=== PATIENT | male | born 1970 | race American Indian/Alaskan Native ===

== ENCOUNTER 2019-11-09 05:08 | Day surgery (SDC) | payer OTHER ==
[2019-11-06 13:45] LABS: BASO % 0.3 % (0-2.0); EOS % 1.7 % (0-4.5); HEMATOCRIT 46.5 % (35.4-49); HEMOGLOBIN 15.2 GM/dL (11.7-16.9); MCH 27.9 pg (25.7-33.7); MCHC 32.6 g/dl (32.0-35.9); MEAN CELL VOLUME 85.5 fl (80-96); MEAN PLT VOLUME 9.7 fl (7.5-11.1); MONO % 8.2 % (3.8-10.2); NEUT % 50.8 % (42.8-82.8); PLATELET COUNT 187 K/MM3 (134-434); RBC 5.45 M/mm3 (4.00-5.60); RDW 13.2 % (11.9-15.9); WHITE BLOOD COUNT 8.5 K/mm3 (4.0-10.0)
[2019-11-06 14:03] LABS: ALBUMIN 3.9 g/dl (3.4-5.0); BILIRUBIN,TOTAL 0.5 mg/dL (0.2-1); BLOOD UREA NITROGEN 14.8 mg/dL (7-18); CALCIUM 9.3 mg/dL (8.5-10.1); CREATININE 0.9 mg/dL (0.55-1.3); POTASSIUM 4.6 mmol/L (3.5-5.1); TOT PROT 7.4 g/dl (6.4-8.2)
[2019-11-06 14:04] LABS: INR 0.99 (0.83-1.09); PROTHROMBIN TIME (PATIENT) 11.7 SEC (9.7-13.0)
[2019-11-06 14:59] LABS: EPI CELLS >36 /uL (0-25.1); HYALINE CASTS 8 /uL (0-3.1); URINE APPEARANCE CLEAR; URINE BACTERIA 27 /uL (0-1359); URINE BILIRUBIN NEGATIVE (NEGATIVE); URINE COLOR YELLOW; URINE GLUCOSE (UA) NEGATIVE (NEGATIVE); URINE KETONE NEGATIVE (NEGATIVE); URINE LEUK ESTERASE 1+ (NEGATIVE); URINE NITRITE NEGATIVE (NEGATIVE); URINE PROTEIN 1+ (NEGATIVE); URINE RBC 2187 /uL (0-23.9); URINE UROBILINOGEN 0.2 mg/dL (0.2-1.0); URINE WBC 79 /uL (0-25.8)
[2019-11-08 12:26] VITALS: BMI 34.4
--- NOTE | 2019-11-09 08:02 | HP ---
History & Physical Update - History History: No Change - Physical Physical: No Change - Assessment Assessment: No Change - Plan Plan: No Change
--- NOTE | 2019-11-09 08:04 | OP ---
Operative Note - Note: Operative Date: 11/09/19 Pre-Operative Diagnosis: R ureteral calculus Operation: R ureteroscopic laser lithotripsy and JJ stent change Findings: R ureteral calculus Post-Operative Diagnosis: Same as Pre-op Surgeon: Abhi Mcclellan Anesthesiologist/REVIEW ENGINEER: Susan Cruz Anesthesia: General Specimens Removed: R ureteral calculus, R JJ stent Estimated Blood Loss (mls): 0 Drains & Tubes with Location: 6 fr 24 cm R JJ stent Operative Report Dictated: Yes
[2019-11-09] MEDS ORDERED: EPHEDRINE SULFATE/0.9% NACL/PF 50 MG/10 ML SYRINGE NR ONE (08:10)
[2019-11-09] MEDS ORDERED: PROPOFOL 20 ML ONE ×2 (08:10)
[2019-11-09] MEDS ORDERED: DEXAMETHASONE SOD PHOSPHATE 4 MG/1 ML VIAL ONE (08:10)
[2019-11-09] MEDS ORDERED: MIDAZOLAM HCL 2 MG/2 ML SINGLE DOSE VIAL ONE ×2 (08:11)
[2019-11-09] MEDS ORDERED: SUCCINYLCHOLINE CHLORIDE 200 MG/10 ML SYRINGE ONE (08:11)
[2019-11-09] MEDS ORDERED: ONDANSETRON 4 MG/2 ML VIAL IVPUSH PRN (08:27)
[2019-11-09] MEDS ORDERED: oxyCODONE HCL 5 MG TABLET PO PRN ×2 (08:27)
[2019-11-09] MEDS ORDERED: LACTATED RINGERS SOLUTION 1,000 ML IV SCH (08:30)
[2019-11-09] MEDS ORDERED: ceFAZolin SODIUM 1 GM VIAL IVPB ONE (08:45)
[2019-11-09] MEDS ORDERED: KETOROLAC TROMETHAMINE 30 MG/1 ML VIAL ONE (09:15)
[2019-11-09] MEDS ORDERED: RACEPINEPHRINE IH SOL 2.25% 11.25 MG/0.5 ML VIAL NEB ONE (09:41)
[2019-11-09] MEDS ORDERED: SEVOFLURANE 250 ML BTL ONE (10:21)
[2019-11-09] MEDS ORDERED: oxyCODONE HCL 5 MG TABLET ONE (11:02)
--- NOTE | 2019-11-09 13:52 | OP ---
DATE OF OPERATION: 11/09/2019 PREOPERATIVE DIAGNOSIS: Right ureteral calculus. POSTOPERATIVE DIAGNOSIS: Right ureteral calculus. PROCEDURE: Right ureteroscopic laser lithotripsy and right double-J stent change. SURGEON: Abhi Mcclellan MD MACHINIST SET UP: None. ANESTHESIA: General via laryngeal mask. ANESTHESIOLOGIST: Susan SPECIMENS: Right ureteral calculus, right double-J stent. DRAINS: A 6-Georgian 24-cm right double-J stent. ESTIMATED BLOOD LOSS: None. COMPLICATIONS: None. DESCRIPTION OF PROCEDURE: The patient was brought into the operating room, placed on the operating table in the supine position. After the administration of general anesthesia via laryngeal mask, intravenous antibiotics were administered, sequential compression devices were placed. Patient was placed in the dorsal lithotomy position. The genitals and perineum were prepped and draped in the usual sterile manner. A 22-Georgian cystoscope was inserted into the bladder under direct vision. Anterior and posterior urethra was normal. The bladder was entered and thoroughly inspected. There were no tumors, stones. There was inflammation related to indwelling right double-J stent. The right double-J stent was grasped at its tip, brought to the urethral meatus, cannulated with a 0.038 guidewire which was unable to be passed due encrustation of the double-J stent. Double-J stent was removed, sent to pathology as specimen. Now the 0.038 guidewire was inserted into the right ureteral orifice, advanced to the level of right renal pelvis under direct visual and fluoroscopic guidance. Now the semirigid ureteroscope was inserted alongside the guidewire into the distal ureter where calculus was identified. A 360-micron laser fiber was inserted and laser lithotripsy was done until the stone was fragmented into several small pieces. Basket was inserted. The stone was removed. Now the ureteroscope was removed, the cystoscope backloaded. Dual-lumen catheter was inserted. Retrograde pyelogram was done, demonstrating no extravasation of contrast, no filling defects, moderate hydronephrosis. The guidewire was left coiled in the renal pelvis. The dual-lumen catheter was removed and a 6-Georgian 24-cm right double-J stent was inserted over the guidewire under fluoroscopic and direct visual guidance, leaving 1 coil in the renal pelvis and 1 coil in the bladder. The bladder was emptied, instruments removed. The stent was secured to the penis with a suture and a Tegaderm. He tolerated the procedure well, transferred to the recovery room in stable condition. Brandie [id number]
[2019-11-09 15:02] VITALS: BP 111/61; PULSE 79; TEMP 97.3
--- NOTE | 2019-11-13 17:07 | PATH ---
Surgical Pathology Report Patient Name: SASCHA DUKES Med. Rec. #: [id number] /Age/Gender: 1970 (Age: 49) / M Account: [id number] Location: [facility] SURGICAL Taken: 11/09/2019 Received: 11/09/2019 Reported: 11/13/2019 Physicians: Abhi Mcclellan M.D. Specimen(s) Received A: OLD URETERAL STENT RIGHT B: URETERAL STONE RIGHT Clinical History Calculus right ureter Final Diagnosis A. OLD URETERAL STENT RIGHT, REMOVAL: CONSISTENT WITH SEGMENT OF STENT. B. RIGHT URETERAL STONE, REMOVAL: CONSISTENT WITH URETHRAL CALCULI. SENT FOR CHEMICAL ANALYSIS. Electronically Signed Thuy Warren M.D. Gross Description A. Received fresh labeled "old ureteral stent the right," is a 36 cm in length blue, coiled portion of tubing, consistent with a ureteral stent. No soft tissue is present. No sections are submitted, gross only. B. Received fresh labeled "right ureteral stone," is a 0.3 x 0.3 x 0.2 cm aggregate of granado, irregular to fragmented calculi. The specimen is sent for chemical analysis. DL/11/12/2019 saudi/11/12/2019
[2019-11-27 09:11] LABS: CA OXALATE MONOHYDR. 100%; SIZE 2 x 2; WEIGHT 2
== END 2019-11-09 12:40 | disposition home or self-care (01) ==
LOC: JASU-SURG 05:08
PROVIDERS: ATTEND Urology
PROC: 0TF68ZZ Fragmentation in Right Ureter, Via Natural or Artificial Opening Endoscopic (ICD-10-PCS; principal; 2019-11-09 09:00)
PROC: 0T768DZ Dilation of Right Ureter with Intraluminal Device, Via Natural or Artificial Opening Endoscopic (ICD-10-PCS; 2019-11-09 09:00)
DX: N20.1 Calculus of ureter (principal)
CPT/HCPCS: 36415; 76000-TC-FY; 80053; 81003; 82360; 85025; 85610; 88300-TC; 94760

== ENCOUNTER 2019-12-25 04:16 | Inpatient (IN) | payer OTHER ==
[2019-12-24 09:37] VITALS: BMI 34.4
[2019-12-25] MEDS ORDERED: PROPOFOL 20 ML ONE ×7 (07:43→08:21)
--- NOTE | 2019-12-25 07:54 | HP ---
History & Physical Update - History History: No Change - Physical Physical: No Change - Assessment Assessment: No Change - Plan Plan: No Change
--- NOTE | 2019-12-25 07:56 | OP ---
Operative Note - Note: Operative Date: 12/25/19 Pre-Operative Diagnosis: R renal calculus Operation: ESWL R Findings: R renal calculus Post-Operative Diagnosis: Same as Pre-op Surgeon: Abhi Mcclellan Anesthesiologist/SAP PPM CONSULTANT: Lui Cameron Anesthesia: MAC Estimated Blood Loss (mls): 0 Operative Report Dictated: Yes
--- NOTE | 2019-12-25 08:54 | RAPID ---
Physical Examination Vital Signs: Vital Signs Temperature 97.7 F 12/25/19 06:45 Pulse Rate 74 12/25/19 06:45 Respiratory Rate 20 12/25/19 06:45 Blood Pressure 122/73 12/25/19 06:45 O2 Sat by Pulse Oximetry (%) 97 12/25/19 06:45 Rapid Response - Rapid Response Assessment: Rapid response was called overhead, Team responded immediately. Patient was having seizure like activity. Anesthesiology was on site. Anesthesiology continued patient's rapid Care.
[2019-12-25] MEDS ORDERED: PROPOFOL 1,000,000 MCG/100 ML VIAL ONE (09:06)
[2019-12-25] MEDS: PROPOFOL 1,000,000 MCG/100 ML VIAL IVPB SCH (09:35)
--- NOTE | 2019-12-25 10:15 | PN ---
Progress Note (short form) - Note Progress Note: Called by [facility] to evaluate an unresponsive patient s/p ESWL with no other medical history. Upon arrival patient was unresponsive to verbal command and making whole body tonic clonic movements. Pt breathing, but irregularly. Pulse regular and strong. BP 120/78, HR 75, O2 Sat 100%. Decision made to break seizure with propofol 100mg. Bag mask ventilation easy. Calls placed to surgeon and family. FS 101. BMP, CPK sent. No known underlying seizure disorder, medical or subs tance abuse history. Pt brought to PACU. As propofol wears off, pupils noted to be responsive, and pt demonstates ability to withdraw from noxious stimuli. Pt voluntary moving all 4 extremities, but not responsive to verbal commands. Repeat episode of tonic clonic activity and inadequate breathing ensues. Propofol 100mg IV given again. Decision made to not use benzodiazepines in order to allow other services to examine patient. Hospitalist examines patient then patient seizes for 3rd time. Decision made with hospitalist and input from ICU team to break seizure activity again, intubate patient, place on a propofol infusion and bring to ICU with plan of obtaining CT head. Atraumatic DL x 1 attempt with MAC4 blade, VC 1 view. 7.0 ETT secured 22cm at teeth, placed on vent, brought to ICU. Vital signs remain stable. Will follow.
--- NOTE | 2019-12-25 10:16 | PN ---
Progress Note (short form) - Note Progress Note: ANESTHESIA Event Note Called to patient bedside with report of seizure like activity and unresponsiveness. Patient had been transferred to [facility] recovery room. Monitors had been placed. Initial VS HR 82 BP 125/72 RR 18 O2 sat 97% 2L. Patient was responsive to voice and touch though not purposeful at time of transfer. NA in the room at time of transfer. Report given to Nursing staff at [facility] commamd desk. Rapid response called. Upon arrival another Anesthesia staff member was present assisting with BMV. VS at that time HR 73 O2 sat 100%. Patient was unresponsive exhibiting tonic-clonic like activity. Propofol 100mg administered via PIV. Patient hemodynamically stable throughout, though unresponsive to voice or command during redistribution phase of propofol. Pupils were equally reactive, patient breathing spontaneously. FS 103mg%. Patient breathing spontaneously and HD stable. Transferred to PACU for further monitoring and to await medical consultation. In PACU recurrent tonic-clonic activity noted. 100mg bolus of propofol readministered. Second PIV established, labs sent. Patient responsive to IV access attempts but unresponsive to command. Vital Signs Period Temp Pulse Resp BP Sys/Lovett Pulse Ox Last 24 Hr 97.7 F-97.7 F 65-74 20-20 114-122/58-73 97-99 A/P: 49M no significant PMH s/p R ESWL under propofol TIVA. Intraoperative course uneventful. Seizure like activity manifest as tonic-clonic activity and unresponsiveness observed in [facility] PACU. Unclear etiology. Now in PACU for observation. HD stable throughout. - Neurology consultation pending - Further airway intervention pending mental status reassessment and need for ra diologic exam
[2019-12-25 10:56] LABS: ALBUMIN 3.3 g/dl (3.4-5.0); BILIRUBIN,TOTAL 0.5 mg/dL (0.2-1); BLOOD UREA NITROGEN 14.4 mg/dL (7-18); CALCIUM 8.6 mg/dL (8.5-10.1); CREATININE 0.8 mg/dL (0.55-1.3); POTASSIUM 4.2 mmol/L (3.5-5.1); TOT PROT 6.4 g/dl (6.4-8.2)
[2019-12-25 10:57] LABS: MAGNESIUM 2.6 mg/dL (1.8-2.4)
--- NOTE | 2019-12-25 11:13 | OP ---
DATE OF OPERATION: 12/25/2019 PREOPERATIVE DIAGNOSIS: Right renal calculus. POSTOPERATIVE DIAGNOSIS: Right renal calculus. PROCEDURE: Extracorporeal shockwave lithotripsy, right renal calculus. ANESTHESIA: IV sedation. ANESTHESIOLOGIST: Lui Cameron MD SPECIMENS: None. CULTURES: None. DRAINS: None. ESTIMATED BLOOD LOSS: None. COMPLICATION: None. PROCEDURE: Patient was brought in the operating room, placed on the operating table in the supine position. After administration of intravenous sedation, patient was positioned over the treatment head and under ultrasound guidance 5-mm right mid renal calculus was identified, targeted and delivered 2500 shocks of maximum kilovoltage with excellent fragmentation. Tolerated the procedure well. Was transferred to the recovery room in stable condition. ERIC HENDERSON M.D. [id number]
--- NOTE | 2019-12-25 12:19 | PN ---
Teaching Attending Note Name of Resident: Tony Keating ATTENDING PHYSICIAN STATEMENT I saw and evaluated the patient. I reviewed the resident's note and discussed the case with the resident. I agree with the resident's findings and plan as documented. SUBJECTIVE: Pt seen and examined in the ICU. Transferred from PACU intubated, sedated on pr opofol gtt. Pt self extubated. OBJECTIVE: Vital Signs Period Temp Pulse Resp BP Sys/Lovett Pulse Ox Last 24 Hr 96 F-97.7 F 63-79 12-20 103-150/48-104 97-100 Intake & Output 12/22/19 12/23/19 12/24/19 12/25/19 23:59 23:59 23:59 23:59 Intake Total 400 Balance 400 Weight 93.894 kg Gen: extubated Heart: RRR Lung: decreased breath sounds at the bases Abd: soft, nontender Ext: no edema CBC, BMP 12/25/19 09:25 Active Medications Propofol (Diprivan -) 1,000,000 mcg in 100 mls @ 28.168 mls/hr IVPB TITR DIEGO; Protocol Last Admin: 12/25/19 09:35 Dose: 50 mls Documented by: Levetiracetam (Keppra Injection -) 1,500 mg IVPB ONCE ONE Stop: 12/25/19 11:36 Ondansetron HCl (Zofran Injection) 4 mg IVPUSH ONCE ONE Stop: 12/25/19 11:52 ASSESSMENT AND PLAN: Right Nephrolithiasis s/p R ESWL New Onset Seizure - antiepileptics - CT head - tox screen - panculture - neuro eval - O2 to keep SpO2 >90% - seizure precautions - DVT prophylaxis
[2019-12-25] MEDS ORDERED: ONDANSETRON 4 MG/2 ML VIAL IVPUSH ONE (12:30)
[2019-12-25] MEDS ORDERED: levETIRAcetam 500 MG/5 ML INJECTION VIAL IVPB ONE (12:30)
--- NOTE | 2019-12-25 12:39 | EKG ---
Test Reason : Blood Pressure : / mmHG Vent. Rate : 078 BPM Atrial Rate : 078 BPM P-R Int : 156 ms QRS Dur : 094 ms QT Int : 398 ms P-R-T Axes : 057 065 009 degrees QTc Int : 453 ms NORMAL SINUS RHYTHM SEPTAL INFARCT , AGE UNDETERMINED ABNORMAL ECG NO PREVIOUS ECGS AVAILABLE Confirmed by MD Freedom, Ivan ([id number]) on 12/25/2019 12:39:14 PM Referred By: Confirmed By:Ivan Loja MD
[2019-12-25 13:13] LABS: BASO % 0.1 % (0-2.0); EOS % 1.5 % (0-4.5); HEMATOCRIT 43.5 % (35.4-49); HEMOGLOBIN 14.6 GM/dL (11.7-16.9); LYMPH % 29.4 % (8-40); MCH 28.6 pg (25.7-33.7); MCHC 33.5 g/dl (32.0-35.9); MEAN CELL VOLUME 85.2 fl (80-96); MEAN PLT VOLUME 9.7 fl (7.5-11.1); MONO % 8.4 % (3.8-10.2); NEUT % 60.6 % (42.8-82.8); PLATELET COUNT 158 K/MM3 (134-434); RDW 13.4 % (11.9-15.9); WHITE BLOOD COUNT 8.6 K/mm3 (4.0-10.0)
[2019-12-25 13:35] LABS: MAGNESIUM 2.4 mg/dL (1.8-2.4); PHOSPHOROUS 3.1 mg/dL (2.5-4.9)
--- NOTE | 2019-12-25 13:57 | CONSULT ---
Consultation: REQUESTING PROVIDER: Dr. Mcclellan CONSULT REQUEST: We have been asked to medically evaluate this patient for ICU admission. HISTORY OF PRESENT ILLNESS: Patient came to hospital for extracorpeal shock wave lithotripsy for kidney stones. Patient was in PACU s/p procedure when he started to have seizures. As per nursing note @ 10:30 AM: patient unresponsive, intubated, vent AC 500/50%/12/5 ET 7.0 at the lip 22cm. Propofol infusing at 50mcg/kg/min. Bear hugger in placed. VS 116/58 RR 12 HR 78 normal sinus, rectal temp 96.1. Wrist restraints in place. Patient transferred to ICU from pacu intubated. Patient extubated himself. Patient was awake, non responsive. Breathing on NC. REVIEW OF SYSTEMS: Patient not responded to questions at this time: not able to assess ROS PHYSICAL EXAMINATION Vital Signs - 24 hr 12/25/19 12/25/19 12/25/19 06:45 09:00 09:04 Temperature 97.7 F Pulse Rate 74 77 67 Respiratory 20 12 12 Rate Blood Pressure 122/73 150/104 H 122/73 O2 Sat by Pulse 97 98 100 Oximetry (%) 12/25/19 12/25/19 12/25/19 09:05 09:20 09:35 Temperature Pulse Rate 63 79 76 Respiratory 14 16 18 Rate Blood Pressure 117/56 L 110/69 120/62 O2 Sat by Pulse 100 100 100 Oximetry (%) 12/25/19 12/25/19 12/25/19 09:42 09:45 10:00 Temperature 97.7 F 96 F L Pulse Rate 65 74 Respiratory 20 12 12 Rate Blood Pressure 114/58 L 120/63 O2 Sat by Pulse 99 100 99 Oximetry (%) GENERAL: Awake, and alert, not able to assess orientation Head: Atraumatic ENT: PERRL Heart: RRR, s1, s2 Lungs: CTA BL EXT: no edema BL, muscles rigid Laboratory Results - last 24 hr 12/25/19 12/25/19 12/25/19 08:56 09:25 09:25 WBC RBC Hgb Hct MCV MCH MCHC RDW Plt Count MPV Absolute Neuts (auto) Neutrophils % Lymphocytes % Monocytes % Eosinophils % Basophils % Nucleated RBC % Sodium 139 Potassium 4.2 Chloride 106 Carbon Dioxide 29 Anion Gap 5 L BUN 14.4 Creatinine 0.8 Est GFR (CKD-EPI)AfAm 122.43 Est GFR (CKD-EPI)NonAf 105.63 POC Glucometer 101 Random Glucose 96 Calcium 8.6 Phosphorus Magnesium 2.6 H Total Bilirubin 0.5 AST 34 ALT 49 Alkaline Phosphatase 109 Creatine Kinase 95 Total Protein 6.4 Albumin 3.3 L 12/25/19 12/25/19 12:48 12:48 WBC 8.6 RBC 5.10 Hgb 14.6 Hct 43.5 MCV 85.2 MCH 28.6 MCHC 33.5 RDW 13.4 Plt Count 158 MPV 9.7 Absolute Neuts (auto) 5.2 Neutrophils % 60.6 Lymphocytes % 29.4 D Monocytes % 8.4 Eosinophils % 1.5 Basophils % 0.1 Nucleated RBC % 0 Sodium Potassium Chloride Carbon Dioxide Anion Gap BUN Creatinine Est GFR (CKD-EPI)AfAm Est GFR (CKD-EPI)NonAf POC Glucometer Random Glucose Calcium Phosphorus 3.1 Magnesium 2.4 Total Bilirubin AST ALT Alkaline Phosphatase Creatine Kinase Total Protein Albumin Active Medications Generic Name Dose Route Start Last Admin Trade Name Freq PRN Reason Stop Dose Admin Propofol 1,000,000 mcg in 100 mls @ 28.168 mls/hr 12/25/19 10:30 12/25/19 09:35 Diprivan - IVPB 50 mls TITR DIEGO Administration Protocol 50 MCG/KG/MIN Levetiracetam 500 mg 12/25/19 22:00 Keppra Injection - IVPB BID [facility] ASSESSMENT/PLAN: 49 yo male with not significant pmhx, consulted for seizures s/p ESWL. Unclear etiology. Admitting to ICU for further care and observation. Unexplained Seizures: Keppra given in ICU Neurology consulted Head CT Labs: Cardiac profile, UA, U tox, alcohol Dispo: Admitting to ICU for further care and observation Visit type - Emergency Visit Emergency Visit: Yes ED Registration Date: 12/25/19 Care time: The patient presented to the Emergency Department on the above date and was hospitalized for further evaluation of their emergent condition. - New Patient This patient is new to me today: Yes Date on this admission: 12/25/19 - Critical Care Critical Care patient: Yes Total Critical Care Time (in minutes): 35 Critical Care Statement: The care of this patient involved high complexity decision making to prevent further life threatening deterioration of the patient's condition and/or to evaluate & treat vital organ system(s) failure or risk of failure. ATTENDING PHYSICIAN STATEMENT I saw and evaluated the patient. I reviewed the resident's note and discussed the case with the resident. I agree with the resident's findings and plan as documented. SUBJECTIVE: OBJECTIVE: ASSESSMENT AND PLAN:
--- NOTE | 2019-12-25 16:39 | CON.NEURO ---
Consult - Smoking History Smoking history: Never smoked Home Medications - Allergies Allergies/Adverse Reactions: Allergies Allergy/AdvReac Type Severity Reaction Status Date / Time Penicillins Allergy "rash" Verified 11/09/19 07:42 - Home Medications Home Medications: Ambulatory Orders Tamsulosin HCl [Flomax] 0.4 mg PO HS 11/08/19 Acetaminophen [Tylenol] 325 mg PO PRN PRN 11/09/19 Oxycodone HCl/Acetaminophen [Oxycodone-Acetaminophen 5-325] 1 each PO Q4H PRN 7 Days #42 tablet MDD 6 12/25/19 Physical Exam-Neuro Vital Signs: Vital Signs Temperature 98.0 F 12/25/19 14:00 Pulse Rate 73 12/25/19 14:00 Respiratory Rate 20 12/25/19 14:00 Blood Pressure 105/66 12/25/19 14:00 O2 Sat by Pulse Oximetry (%) 100 12/25/19 14:00 Labs: CBC, BMP 12/25/19 12:48 12/25/19 09:25 Assessment/Plan CC ? New onset seizure HPI 49 year old male , seen in ICU -2 with his daughter at bed side. I was called to see him for ? new onset seizure He came for outpatient lithotripsy procedure and in post op area. He has been having severe nausea and was try to vomiging and his abdomen dayne and it is not clear if he has tonic clonic seizure or if he was having severe naseua and tring to vomit. Patinet was givne profofol and was intubated. He has urgent ct head and it was uemarkable, his electrolyte were normal. Patient has no other medical problem and has not been takign any medication. He was intuabted and subsequently he was self extubated and he bas been stable PMH as above Medication none allergies pcn SH,FH,ROS reviewed in chart NEUROLOGICAL EXAMIANTION Drowsy and able to communciate, oriented x 3 neck is supple vss, afebrile eomi, pupils reactive no face asymmetry moving all ext sensation is normal ct head is normal labs and electrolyte unremarkable Assessment/Plan ? new onset seizure vs heaves, neuro exam is noraml, no evidence of meningitis or stroke. 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 It was discussed with his daughter and patient - seizure precautions Thanking you so much Rodolfo Woody md
[2019-12-25] MEDS: SODIUM CHLORIDE 1,000 ML IV SCH (17:36)
[2019-12-25] MEDS: ACETAMINOPHEN 325 MG TABLET (FP) PO PRN (17:36)
[2019-12-25] MEDS: levETIRAcetam 500 MG/5 ML INJECTION VIAL IVPB SCH (21:42)
[2019-12-25] MEDS ORDERED: ACETAMINOPHEN 1000 MG/100 ML VIAL (NON FORMULARY) IVPB ONE (23:05)
[2019-12-25] MEDS: BENZOCAINE/MENTH/CETYLPYRD CL 1 EACH LOZENGE MM PRN (23:24)
[2019-12-26 01:25] LABS: EPI CELLS 3 /uL (0-25.1); HYALINE CASTS 1 /uL (0-3.1); URINE APPEARANCE CLEAR; URINE BACTERIA 1 /uL (0-1359); URINE BILIRUBIN NEGATIVE (NEGATIVE); URINE COLOR YELLOW; URINE GLUCOSE (UA) NEGATIVE (NEGATIVE); URINE KETONE NEGATIVE (NEGATIVE); URINE LEUK ESTERASE TRACE (NEGATIVE); URINE NITRITE NEGATIVE (NEGATIVE); URINE PROTEIN NEGATIVE (NEGATIVE); URINE RBC 291 /uL (0-23.9); URINE UROBILINOGEN 0.2 mg/dL (0.2-1.0); URINE WBC 4 /uL (0-25.8)
[2019-12-26 02:03] LABS: COCAINE, UR NEGATIVE ng/ml (CUTOFF=300); OPIATES, URI NEGATIVE ng/ml (CUTOFF=300); PHENCYCLIDINE,URINE NEGATIVE ng/ml (CUTOFF=25); URINE BARBITURATES NEGATIVE ng/ml (CUTOFF=200)
[2019-12-26 02:16] LABS: METHADONE, UR NEGATIVE ng/ml (CUTOFF=300); URINE AMPHETAMINES NEGATIVE ng/ml (CUTOFF=500); URINE BENZODIAZEPINES NEGATIVE ng/ml (CUTOFF=200)
[2019-12-26 07:12] LABS: HEMATOCRIT 41.6 % (35.4-49); HEMOGLOBIN 13.8 GM/dL (11.7-16.9); MCH 28.2 pg (25.7-33.7); MCHC 33.1 g/dl (32.0-35.9); MEAN CELL VOLUME 85.1 fl (80-96); MEAN PLT VOLUME 9.5 fl (7.5-11.1); PLATELET COUNT 154 K/MM3 (134-434); RBC 4.88 M/mm3 (4.00-5.60); RDW 13.2 % (11.9-15.9); WHITE BLOOD COUNT 7.2 K/mm3 (4.0-10.0)
[2019-12-26 07:39] LABS: ALBUMIN 3.2 g/dl (3.4-5.0); BLOOD UREA NITROGEN 12.1 mg/dL (7-18); CALCIUM 8.7 mg/dL (8.5-10.1); MAGNESIUM 2.5 mg/dL (1.8-2.4)
[2019-12-26 07:42] LABS: BILIRUBIN,TOTAL 0.7 mg/dL (0.2-1); CREATININE 0.8 mg/dL (0.55-1.3); TOT PROT 6.2 g/dl (6.4-8.2)
[2019-12-26] MEDS: ACETAMINOPHEN 325 MG TABLET (FP) PO PRN ×2 (08:32→16:41)
--- NOTE | 2019-12-26 08:32 | PN ---
Progress Note (short form) - Note Progress Note: 49 year old male , seen in ICU -2 with his daughter at bed side. I was called to see him for ? new onset seizure He came for outpatient lithotripsy procedure and in post op area. He has been having severe nausea and was try to vomiging and his abdomen dayne and it is not clear if he has tonic clonic seizure or if he was having severe naseua and tring to vomit. Patinet was givne profofol and was intubated. He has urgent ct head and it was uemarkable, his electrolyte were normal. Patient has no other medical problem and has not been takign any medication. He was intuabted and subsequently he was self extubated and he bas been stable chart reviewed, event noted, spoke to nursing staff. No seizure. He has been having photophobia and headahce. Mri of brain is normal. NEUROLOGICAL EXAMIANTION Drowsy and able to communciate, oriented x 3 neck is supple vss, afebrile eomi, pupils reactive no face asymmetry moving all ext sensation is normal ct head is normal labs and electrolyte unremarkable mri of brain unremarkable Assessment/Plan 1. ? new onset seizure vs heaves, neuro exam is noraml, no evidence of meningitis or stroke. Ct head is normal - mri of brai unremarkable, eeg is pending - continue keprpa 500 mg po bid for seven days than d/c - seizure precautions 2. Photophobia and headache - Nsaid prn , watch for now - if continue , consider optho consult, neuro exam is non focal and mri is noraml Thanking you so much Rodolfo Woody md
[2019-12-26] MEDS: BENZOCAINE/MENTH/CETYLPYRD CL 1 EACH LOZENGE MM PRN ×2 (09:00→16:44)
[2019-12-26] MEDS: levETIRAcetam 500 MG/5 ML INJECTION VIAL IVPB SCH (10:10)
[2019-12-26] MEDS ORDERED: ACETAMINOPHEN 325 MG TABLET (FP) PO ONE (13:06)
--- NOTE | 2019-12-26 13:09 | PN ---
Teaching Attending Note Name of Resident: Deepali Del Cid ATTENDING PHYSICIAN STATEMENT I saw and evaluated the patient. I reviewed the resident's note and discussed the case with the resident. I agree with the resident's findings and plan as documented. SUBJECTIVE: Pt seen and examined in the ICU. No further seizure activity. c/o headache this AM. Brain imaging and bloodwork unremarkable. OBJECTIVE: Vital Signs Period Temp Pulse Resp BP Sys/Lovett Pulse Ox Last 24 Hr 98.0 F-98.3 F 50-88 9-20 86-118/51-69 95-100 Intake & Output 12/23/19 12/24/19 12/25/19 12/26/19 23:59 23:59 23:59 23:59 Intake Total 900 600 Output Total 400 400 Balance 500 200 Weight 93.894 kg Gen: NAD at rest Heart: RRR Lung: decreased breath sounds at the bases Abd: soft, nontender Ext: no edema CBC, BMP 12/26/19 05:25 12/26/19 05:25 Active Medications Acetaminophen (Tylenol -) 650 mg PO Q6H PRN PRN Reason: Fever Or Pain Last Admin: 12/26/19 08:32 Dose: 650 mg Documented by: Benzocaine/Menthol (Cepacol Lozenge -) 1 each MM PRN PRN PRN Reason: SORE THROAT Last Admin: 12/25/19 23:24 Dose: 1 each Documented by: Propofol (Diprivan -) 1,000,000 mcg in 100 mls @ 28.168 mls/hr IVPB TITR DIEGO; Protocol Last Titration: 12/25/19 12:45 Dose: 0 mcg/kg/min, 0 mls/hr Documented by: Sodium Chloride (Normal Saline -) 1,000 mls @ 75 mls/hr IV ASDIR DIEGO Last Admin: 12/25/19 17:36 Dose: 75 mls/hr Documented by: Levetiracetam (Keppra Injection -) 500 mg IVPB BID DIEGO Last Admin: 12/26/19 10:10 Dose: 500 mg Documented by: ASSESSMENT AND PLAN: Right Nephrolithiasis s/p R ESWL New Onset Seizure - empiric antiepileptics - f/u cultures - DVT prophylaxis - can d/c home
[2019-12-26] MEDS ORDERED: oxyCODONE HCL 5 MG TABLET PO ONE ×2 (16:01→16:21)
--- NOTE | 2019-12-26 17:17 | PN ---
Progress Note (short form) - Note Progress Note: 49 y.o. M PMH R renal calculus now POD#1 s/p right ESWL. Last Vital Signs Temp Pulse Resp BP Pulse Ox 98.2 F 77 18 108/63 97 12/26/19 14:00 12/26/19 16:00 12/26/19 16:00 12/26/19 16:00 12/26/19 16:00 Physical exam: Gen: Alert, oriented x 3. In NAD Neuro: Sensation intact throughout. 4/5 motor strength b/l LEs. HEENT: mild oropharyngeal erythema Pulm: CTABL CV: S1S2 WNL no m/r/g Abd: soft ntnd +BS Extr: Full ROM A/P: 49 y.o. M PMH R renal calculus now POD#1 s/p right ESWL. Patient c/o mild throat discomfort. Will provide throat losenges. Continue with seizure precautions. Neuro is following. Vital signs are stable. Patient stable for transfer to med surg from ICU.
--- NOTE | 2019-12-26 19:02 | PN ---
Progress Note (short form) - Note Progress Note: 49 yo male with not significant pmhx, consulted for seizures s/p ESWL. Unclear etiology. Patient came to hospital for extracorpeal shock wave lithotripsy for kidney stones. Patient was in PACU s/p procedure when he started to have seizures. In PACU, patient became unresponsive, intubated and given propofol. Patient transferred to ICU from pacu intubated. Patient extubated himself. This morning patient was awake, a&o x3. Patient doesn't remember anything from yesterday. Patient only complains of headache. Patient hasn't had any seizures, CT head and MRI brain were normal. Signed off by neurology. Patient was seen by PT: very unsteady & shaky, unable to ambulate further distance, assisted back to bed. Due to patient's current state, patient should be observed for at least 1 more night. Patient is stable for downgrade to med surge.
[2019-12-26] MEDS: SODIUM CHLORIDE 1,000 ML IV SCH (21:15)
[2019-12-26] MEDS: PROPOFOL 1,000,000 MCG/100 ML VIAL IVPB SCH (21:15)
[2019-12-26] MEDS: levETIRAcetam 500 MG TABLET (FP) PO SCH (22:05)
[2019-12-27] MEDS ORDERED: BENZOCAINE/MENTH/CETYLPYRD CL 1 EACH LOZENGE MM PRN (00:03)
[2019-12-27] MEDS ORDERED: ACETAMINOPHEN 325 MG TABLET (FP) PO PRN (00:03)
[2019-12-27] MEDS: SODIUM CHLORIDE 1,000 ML IV SCH (00:53)
[2019-12-27] MEDS: levETIRAcetam 500 MG TABLET (FP) PO SCH (09:35)
--- NOTE | 2019-12-27 11:26 | PN ---
Progress Note (short form) - Note Progress Note: 49 year old male , seen in ICU -2 with his daughter at bed side. I was called to see him for ? new onset seizure He came for outpatient lithotripsy procedure and in post op area. He has been having severe nausea and was try to vomiging and his abdomen dayne and it is not clear if he has tonic clonic seizure or if he was having severe naseua and tring to vomit. Patinet was givne profofol and was intubated. He has urgent ct head and it was uemarkable, his electrolyte were normal. Patient has no other medical problem and has not been takign any medication. He was intuabted and subsequently he was self extubated and he bas been stable no seizure and complaining of photophobia and dizziness. I discuss with patient regarding stopping keppra for now as he is not a candidate for log term candidate NEUROLOGICAL EXAMIANTION Drowsy and able to communciate, oriented x 3 neck is supple vss, afebrile eomi, pupils reactive no face asymmetry moving all ext sensation is normal ct head is normal labs and electrolyte unremarkable mri of brain unremarkable eeg pending Assessment/Plan 1. ? new onset seizure vs heaves, neuro exam is noraml, no evidence of meningitis or stroke. Ct head is normal - mri of brai unremarkable, eeg is pending - stop keppra, discuss with patient as he is having photophobia and dizziness 2. Photophobia and headache - Nsaid prn , watch for now - hold keppra for now Thanking you so much Rodolfo Woody md
[2019-12-27] MEDS ORDERED: KETOROLAC TROMETHAMINE 15 MG/ML VIAL IVPUSH ONE (14:53)
[2019-12-27] MEDS ORDERED: ONDANSETRON 4 MG TABLET PO PRN (15:12)
[2019-12-27] MEDS ORDERED: ONDANSETRON 4 MG/2 ML VIAL IVPUSH PRN (15:24)
--- NOTE | 2019-12-27 15:27 | PN ---
JARROD Mancilla Note Chief Complaint: L flank pain History of Present Illness: 49 yo m 2 days s/p ESWL R renal calculus complic by post op sz, now w severe L flank paon, N, and Jake GARAY cons req. - Objective Vital Signs: Vital Signs Temperature 98.9 F 12/27/19 06:00 Pulse Rate 73 12/27/19 06:00 Respiratory Rate 20 12/27/19 06:00 Blood Pressure 105/63 12/27/19 06:00 O2 Sat by Pulse Oximetry (%) 96 12/27/19 06:00 Constitutional: Yes: Well Nourished, No Distress, Anxious Gastrointestinal: Yes: Soft, Tenderness (LLQ) Genitourinary: Yes: CVA Tenderness - Left Labs/Additional Data: CBC, BMP 12/26/19 05:25 12/26/19 05:25 Problem List - Problems (1) Renal colic on left side Assessment/Plan: obtain non contrast CT A/P to r/o L ureteral calculus or hydronephrosis, cysto and L JJ stent insertion 12/27 if + calculus or hydronephrosis on L. Code(s): N23 - UNSPECIFIED RENAL COLIC
[2019-12-27] MEDS: MORPHINE SULFATE 2 MG/ML VIAL IVPUSH PRN ×2 (15:59→22:09)
--- NOTE | 2019-12-27 17:31 | PN ---
Physical Exam: SUBJECTIVE: Patient seen and examined. Pt downgraded from ICU to med-surg floor. He is s/p lithotripsy on the R. Nurse informed me after pt returned from EEG, pt suddenly having L sided flank pain. Upon my evaluation, pt was groaning, stating that he could "feel the stone moving" in his kidney. Pt also admits to feeling nauseated and vomited 1x. OBJECTIVE: Vital Signs Period Temp Pulse Resp BP Sys/Lovett Pulse Ox Last 24 Hr 97.7 F-98.9 F 61-123 18-20 105-154/60-88 96-99 GENERAL: AAOx3, in acute distress HEENT: NCAT, EOMI, moist mucus membranes. RESPIRATORY: CTA b/l. no wheezes. CARDIAC: Regular rate and rhythm. S1, S2 present, no murmurs. ABDOMEN: soft, nontender, non-distended bowel sounds present. MSK: Moving all extremities. CVAT on the L. EXTREMITIES: warm, well-perfused, no edema. Laboratory Last Values WBC 7.2 K/mm3 (4.0-10.0) 12/26/19 05:25 RBC 4.88 M/mm3 (4.00-5.60) 12/26/19 05:25 Hgb 13.8 GM/dL (11.7-16.9) 12/26/19 05:25 Hct 41.6 % (35.4-49) 12/26/19 05:25 MCV 85.1 fl (80-96) 12/26/19 05:25 MCH 28.2 pg (25.7-33.7) 12/26/19 05:25 MCHC 33.1 g/dl (32.0-35.9) 12/26/19 05:25 RDW 13.2 % (11.9-15.9) 12/26/19 05:25 Plt Count 154 K/MM3 (134-434) 12/26/19 05:25 MPV 9.5 fl (7.5-11.1) 12/26/19 05:25 Absolute Neuts (auto) 5.2 K/mm3 (1.5-8.0) 12/25/19 12:48 Neutrophils % 60.6 % (42.8-82.8) 12/25/19 12:48 Lymphocytes % 29.4 % (8-40) D 12/25/19 12:48 Monocytes % 8.4 % (3.8-10.2) 12/25/19 12:48 Eosinophils % 1.5 % (0-4.5) 12/25/19 12:48 Basophils % 0.1 % (0-2.0) 12/25/19 12:48 Nucleated RBC % 0 % (0-0) 12/25/19 12:48 Sodium 141 mmol/L (136-145) 12/26/19 05:25 Potassium 5.0 mmol/L (3.5-5.1) 12/26/19 05:25 Chloride 106 mmol/L (98-107) 12/26/19 05:25 Carbon Dioxide 33 mmol/L (21-32) H 12/26/19 05:25 Anion Gap 2 MMOL/L (8-16) L 12/26/19 05:25 BUN 12.1 mg/dL (7-18) 12/26/19 05:25 Creatinine 0.8 mg/dL (0.55-1.3) 12/26/19 05:25 Est GFR (CKD-EPI)AfAm 122.43 12/26/19 05:25 Est GFR (CKD-EPI)NonAf 105.63 12/26/19 05:25 POC Glucometer 101 UNITS (80-120) 12/25/19 08:56 Random Glucose 88 mg/dL (74-106) 12/26/19 05:25 Calcium 8.7 mg/dL (8.5-10.1) 12/26/19 05:25 Phosphorus 3.0 mg/dL (2.5-4.9) 12/26/19 05:25 Magnesium 2.5 mg/dL (1.8-2.4) H 12/26/19 05:25 Total Bilirubin 0.7 mg/dL (0.2-1) 12/26/19 05:25 AST 21 U/L (15-37) 12/26/19 05:25 ALT 40 U/L (13-61) 12/26/19 05:25 Alkaline Phosphatase 114 U/L (45-117) 12/26/19 05:25 Creatine Kinase 101 U/L (26-308) 12/25/19 12:48 Troponin I < 0.02 ng/ml (0.00-0.05) 12/25/19 12:48 Total Protein 6.2 g/dl (6.4-8.2) L 12/26/19 05:25 Albumin 3.2 g/dl (3.4-5.0) L 12/26/19 05:25 Prolactin 15.3 ng/ml (4.0-15.2) H 12/25/19 12:48 Urine Color Yellow 12/26/19 00:50 Urine Appearance Clear 12/26/19 00:50 Urine pH 6.0 (5.0-8.0) 12/26/19 00:50 Ur Specific [place] 1.014 (1.010-1.035) 12/26/19 00:50 Urine Protein Negative (NEGATIVE) 12/26/19 00:50 Urine Glucose (UA) Negative (NEGATIVE) 12/26/19 00:50 Urine Ketones Negative (NEGATIVE) 12/26/19 00:50 Urine Blood 3+ (NEGATIVE) H 12/26/19 00:50 Urine Nitrite Negative (NEGATIVE) 12/26/19 00:50 Urine Bilirubin Negative (NEGATIVE) 12/26/19 00:50 Urine Urobilinogen 0.2 mg/dL (0.2-1.0) 12/26/19 00:50 Ur Leukocyte Esterase Trace (NEGATIVE) 12/26/19 00:50 Urine WBC (Auto) 4 /uL (0-25.8) 12/26/19 00:50 Urine RBC (Auto) 291 /uL (0-23.9) 12/26/19 00:50 Urine Casts (Auto) 1 /uL (0-3.1) 12/26/19 00:50 U Epithel Cells (Auto) 3 /uL (0-25.1) 12/26/19 00:50 Urine Bacteria (Auto) 1 /uL (0-1359) 12/26/19 00:50 Opiates Screen Negative ng/ml (HUTOOA=605) 12/26/19 00:50 Methadone Screen Negative ng/ml (KNBYQT=502) 12/26/19 00:50 Barbiturate Screen Negative ng/ml (LYPEYL=882) 12/26/19 00:50 Phencyclidine Screen Negative ng/ml (CUTOFF=25) 12/26/19 00:50 Ur Amphetamines Screen Negative ng/ml (JAFVFG=613) 12/26/19 00:50 MDMA (Ecstasy) Screen Negative ng/ml (GADHVN=286) 12/26/19 00:50 Benzodiazepines Screen Negative ng/ml (FMKZKK=902) 12/26/19 00:50 Cocaine Screen Negative ng/ml (VJLSRQ=154) 12/26/19 00:50 U Marijuana (THC) Screen Negative ng/ml (CUTOFF=50) 12/26/19 00:50 Alcohol, Quantitative < 3 mg/dL (0.0-5.0) 12/25/19 12:48 Active Medications Acetaminophen (Tylenol -) 650 mg PO Q6H PRN PRN Reason: Fever Or Pain Last Admin: 12/27/19 09:41 Dose: 650 mg Documented by: Benzocaine/Menthol (Cepacol Lozenge -) 1 each MM PRN PRN PRN Reason: SORE THROAT Last Admin: 12/27/19 09:42 Dose: 1 each Documented by: Sodium Chloride (Normal Saline -) 1,000 mls @ 75 mls/hr IV ASDIR DIEGO Last Admin: 12/27/19 00:53 Dose: 75 mls/hr Documented by: Morphine Sulfate (Morphine Sulfate) 2 mg IVPUSH Q4H PRN PRN Reason: PAIN LEVEL 6-10 Last Admin: 12/27/19 15:59 Dose: 2 mg Documented by: Ondansetron HCl (Zofran Injection) 4 mg IVPUSH Q4H PRN PRN Reason: NAUSEA AND/OR VOMITING Last Admin: 12/27/19 15:40 Dose: 4 mg Documented by: ASSESSMENT/PLAN: 49 year old M PMH with R renal calculus now POD#2 s/p right ESWL. In the PACU, pt had some seizure like activity, prompting intubation and sedation. Pt self- extubated and was downgraded to medicine floor. Pt subsequently had L sided flank pain, likely due to L renal calculus. L flank pain - post-op day 2 for R ESWL. - Urology consulted. Recommended stat CT abdomen/pelvis w/o contrast. NPO after midnight. Possible L JJ stent placement 12/27 - morphine 2q4H PRN - acetaminophen 650 q6H prn - Zofran 4 q4H PRN Possible new onset seizure - CT head is normal - MRI of brain unremarkable, EEG pending - Neuro consulted. Recommended stop cayla as he is not a candidate. FEN -NS @ 75 - Monitor and replete electrolytes - NPO Ppx DVT: early ambulation Dispo: continue to monitor on floors. Visit type - Emergency Visit Emergency Visit: Yes ED Registration Date: 12/25/19 Care time: The patient presented to the Emergency Department on the above date and was hospitalized for further evaluation of their emergent condition. - New Patient This patient is new to me today: No - Critical Care Critical Care patient: No ATTENDING PHYSICIAN STATEMENT I saw and evaluated the patient. I reviewed the resident's note and discussed the case with the resident. I agree with the resident's findings and plan as documented. SUBJECTIVE: OBJECTIVE: ASSESSMENT AND PLAN:
--- NOTE | 2019-12-27 19:09 | PN ---
Teaching Attending Note Name of Resident: Libra Marie ATTENDING PHYSICIAN STATEMENT I saw and evaluated the patient. I reviewed the resident's note and discussed the case with the resident. I agree with the resident's findings and plan as documented. SUBJECTIVE: Patient is feeling better with NAD, as per nurse his gate is very wobbly, patien t just came back from EEG OBJECTIVE: Vital Signs Temperature 97.8 F 12/27/19 16:30 Pulse Rate 69 12/27/19 16:30 Respiratory Rate 20 12/27/19 16:30 Blood Pressure 154/73 12/27/19 16:30 O2 Sat by Pulse Oximetry (%) 97 12/27/19 14:00 PE; per resident's note No flank pain or discomfort CBCD WBC 7.2 K/mm3 (4.0-10.0) 12/26/19 05:25 RBC 4.88 M/mm3 (4.00-5.60) 12/26/19 05:25 Hgb 13.8 GM/dL (11.7-16.9) 12/26/19 05:25 Hct 41.6 % (35.4-49) 12/26/19 05:25 MCV 85.1 fl (80-96) 12/26/19 05:25 MCHC 33.1 g/dl (32.0-35.9) 12/26/19 05:25 RDW 13.2 % (11.9-15.9) 12/26/19 05:25 Plt Count 154 K/MM3 (134-434) 12/26/19 05:25 MPV 9.5 fl (7.5-11.1) 12/26/19 05:25 CMP Sodium 141 mmol/L (136-145) 12/26/19 05:25 Potassium 5.0 mmol/L (3.5-5.1) 12/26/19 05:25 Chloride 106 mmol/L (98-107) 12/26/19 05:25 Carbon Dioxide 33 mmol/L (21-32) H 12/26/19 05:25 Anion Gap 2 MMOL/L (8-16) L 12/26/19 05:25 BUN 12.1 mg/dL (7-18) 12/26/19 05:25 Creatinine 0.8 mg/dL (0.55-1.3) 12/26/19 05:25 Random Glucose 88 mg/dL (74-106) 12/26/19 05:25 Calcium 8.7 mg/dL (8.5-10.1) 12/26/19 05:25 Total Bilirubin 0.7 mg/dL (0.2-1) 12/26/19 05:25 AST 21 U/L (15-37) 12/26/19 05:25 ALT 40 U/L (13-61) 12/26/19 05:25 Alkaline Phosphatase 114 U/L (45-117) 12/26/19 05:25 Total Protein 6.2 g/dl (6.4-8.2) L 12/26/19 05:25 Albumin 3.2 g/dl (3.4-5.0) L 12/26/19 05:25 CARDIAC ENZYMES Creatine Kinase 101 U/L (26-308) 12/25/19 12:48 Troponin I < 0.02 ng/ml (0.00-0.05) 12/25/19 12:48 Current Medications Generic Name Dose Route Start Last Admin Trade Name Freq PRN Reason Stop Dose Admin Acetaminophen 650 mg 12/27/19 00:03 12/27/19 09:41 Tylenol - PO 650 mg Q6H PRN Administration Fever Or Pain Benzocaine/Menthol 1 each 12/27/19 00:03 12/27/19 09:42 Cepacol Lozenge - MM 1 each PRN PRN Administration SORE THROAT Sodium Chloride 1,000 mls @ 75 mls/hr 12/27/19 00:03 12/27/19 00:53 Normal Saline - IV 75 mls/hr ASDIR DIEGO Administration Morphine Sulfate 2 mg 12/27/19 15:01 12/27/19 15:59 Morphine Sulfate IVPUSH 2 mg Q4H PRN Administration PAIN LEVEL 6-10 Ondansetron HCl 4 mg 12/27/19 15:24 12/27/19 15:40 Zofran Injection IVPUSH 4 mg Q4H PRN Administration NAUSEA AND/OR VOMITING Home Medications Medication Instructions Recorded Tamsulosin HCl [Flomax] 0.4 mg PO HS 11/08/19 Acetaminophen [Tylenol] 325 mg PO PRN PRN 11/09/19 Oxycodone HCl/Acetaminophen 1 each PO Q4H PRN 7 Days #42 12/25/19 [Oxycodone-Acetaminophen 5-325] tablet MDD 6 levETIRAcetam [Keppra -] 500 mg PO BID 7 Days #14 tablet 12/26/19 ASSESSMENT AND PLAN: This patient is a 49yom with PMhx of R renal calculus s/p right ESWL , was in ICU transferred to the medicine team on 12/27/2019. Patient was admitted since had a seizure like activity post procedure. was intubated and self extubated. #POD#2 s/p right ESWL #S/p intubation and self extubation #S/P POSSIBLE new onset seizure :possible due to Propofol ; WITH nl HEAD CT , MRI of brain unremarkable, EEG pending, Neuro DR Woody on the case. EEG is done waiting for the result. As per neuro to stop keppra for now. DVT Px: early ambulation Ct of abdomen pelvis repeat since patient developed severe left flank pain , discussed with Dr casey urologist later the day patient developed severe left flank pain : given ,morphin/toradol and Dr Casey notified going to OR in am for stent placement documented profopol possible causing his seizure activity as allergy
[2019-12-28 07:57] LABS: HEMATOCRIT 41.6 % (35.4-49); HEMOGLOBIN 13.8 GM/dL (11.7-16.9); MCHC 33.2 g/dl (32.0-35.9); MEAN CELL VOLUME 84.4 fl (80-96); MEAN PLT VOLUME 9.6 fl (7.5-11.1); PLATELET COUNT 167 K/MM3 (134-434); RBC 4.93 M/mm3 (4.00-5.60); RDW 13.4 % (11.9-15.9); WHITE BLOOD COUNT 7.8 K/mm3 (4.0-10.0)
--- NOTE | 2019-12-28 07:57 | PN ---
Teaching Attending Note Name of Resident: Libra Marie ATTENDING PHYSICIAN STATEMENT I saw and evaluated the patient. I reviewed the resident's note and discussed the case with the resident. I agree with the resident's findings and plan as documented. SUBJECTIVE: Patient feels better now post IV pain meds. OBJECTIVE: Vital Signs Temperature 98.4 F 12/28/19 06:00 Pulse Rate 64 12/28/19 06:00 Respiratory Rate 20 12/28/19 06:00 Blood Pressure 104/65 12/28/19 06:00 O2 Sat by Pulse Oximetry (%) 96 12/28/19 06:00 PE: per resident's note CBCD WBC 7.2 K/mm3 (4.0-10.0) 12/26/19 05:25 RBC 4.88 M/mm3 (4.00-5.60) 12/26/19 05:25 Hgb 13.8 GM/dL (11.7-16.9) 12/26/19 05:25 Hct 41.6 % (35.4-49) 12/26/19 05:25 MCV 85.1 fl (80-96) 12/26/19 05:25 MCHC 33.1 g/dl (32.0-35.9) 12/26/19 05:25 RDW 13.2 % (11.9-15.9) 12/26/19 05:25 Plt Count 154 K/MM3 (134-434) 12/26/19 05:25 MPV 9.5 fl (7.5-11.1) 12/26/19 05:25 CMP Sodium 141 mmol/L (136-145) 12/26/19 05:25 Potassium 5.0 mmol/L (3.5-5.1) 12/26/19 05:25 Chloride 106 mmol/L (98-107) 12/26/19 05:25 Carbon Dioxide 33 mmol/L (21-32) H 12/26/19 05:25 Anion Gap 2 MMOL/L (8-16) L 12/26/19 05:25 BUN 12.1 mg/dL (7-18) 12/26/19 05:25 Creatinine 0.8 mg/dL (0.55-1.3) 12/26/19 05:25 Random Glucose 88 mg/dL (74-106) 12/26/19 05:25 Calcium 8.7 mg/dL (8.5-10.1) 12/26/19 05:25 Total Bilirubin 0.7 mg/dL (0.2-1) 12/26/19 05:25 AST 21 U/L (15-37) 12/26/19 05:25 ALT 40 U/L (13-61) 12/26/19 05:25 Alkaline Phosphatase 114 U/L (45-117) 12/26/19 05:25 Total Protein 6.2 g/dl (6.4-8.2) L 12/26/19 05:25 Albumin 3.2 g/dl (3.4-5.0) L 12/26/19 05:25 CARDIAC ENZYMES Creatine Kinase 101 U/L (26-308) 12/25/19 12:48 Troponin I < 0.02 ng/ml (0.00-0.05) 12/25/19 12:48 Current Medications Generic Name Dose Route Start Last Admin Trade Name Freq PRN Reason Stop Dose Admin Acetaminophen 650 mg 12/27/19 00:03 12/27/19 09:41 Tylenol - PO 650 mg Q6H PRN Administration Fever Or Pain Benzocaine/Menthol 1 each 12/27/19 00:03 12/27/19 09:42 Cepacol Lozenge - MM 1 each PRN PRN Administration SORE THROAT Sodium Chloride 1,000 mls @ 75 mls/hr 12/27/19 00:03 12/27/19 00:53 Normal Saline - IV 75 mls/hr ASDIR DIEGO Administration Morphine Sulfate 2 mg 12/27/19 15:01 12/27/19 22:09 Morphine Sulfate IVPUSH 2 mg Q4H PRN Administration PAIN LEVEL 6-10 Ondansetron HCl 4 mg 12/27/19 15:24 12/27/19 15:40 Zofran Injection IVPUSH 4 mg Q4H PRN Administration NAUSEA AND/OR VOMITING Home Medications Medication Instructions Recorded RX: Tamsulosin HCl [Flomax] 0.4 mg PO HS 11/08/19 RX: Acetaminophen [Tylenol] 325 mg PO PRN PRN 11/09/19 Oxycodone HCl/Acetaminophen 1 each PO Q4H PRN 7 Days #42 12/25/19 [Oxycodone-Acetaminophen 5-325] tablet MDD 6 levETIRAcetam [Keppra -] 500 mg PO BID 7 Days #14 tablet 12/26/19 CT of brain without contrast:no evidence of focal intracranial lesion or hemorrhage MRI of the brain: negative CT of the abdomen/pelvis: BL nephrolithiasis with no evidence of obstructive uropathy, no acute pathology within the abdomen. 4mm calcification within the lower pole of the right kidney consistent with a nonobstructing stone within the lower pole of the kidney. ASSESSMENT AND PLAN: This patient is a 49yom with PMhx of R renal calculus s/p right ESWL , was in ICU transferred to the medicine team on 12/27/2019. Patient was admitted since had a seizure like activity post procedure. was intubated and self extubated. #POD#3 s/p right ESWL #S/p intubation and self extubation #S/P POSSIBLE new onset seizure :possible due to Propofol ; WITH nl HEAD CT , MRI of brain unremarkable, EEG pending, Neuro DR Woody on the case. EEG is done waiting for the result. As per neuro to stop keppra for now. DVT Px: early ambulation Ct of abdomen pelvis as above as per Dr Davis no need for a stent at this time, will monitor documented profopol possible causing his seizure activity as allergy 12/28/2019
[2019-12-28 08:10] LABS: BLOOD UREA NITROGEN 14.4 mg/dL (7-18); CALCIUM 8.6 mg/dL (8.5-10.1); CREATININE 0.8 mg/dL (0.55-1.3); POTASSIUM 4.9 mmol/L (3.5-5.1)
[2019-12-28] MEDS: MORPHINE SULFATE 2 MG/ML VIAL IVPUSH PRN (09:22)
[2019-12-28] MEDS: SODIUM CHLORIDE 1,000 ML IV SCH (09:25)
--- NOTE | 2019-12-28 09:38 | PN ---
Progress Note (short form) - Note Progress Note: 49 year old male , seen in ICU -2 on admission with his daughter at bed side. I was called to see him for ? new onset seizure He came for outpatient lithotripsy procedure and in post op area. He has been having severe nausea and was try to vomiging and his abdomen dayne and it is not clear if he has tonic clonic seizure or if he was having severe naseua and tring to vomit. Patinet was givne profofol and was intubated. He has urgent ct head and it was uemarkable, his electrolyte were normal. Patient has no other medical problem and has not been takign any medication. He was intuabted and subsequently he was self extubated and he bas been stable - feeling better after stopping keppra. spoke to nursing staff, chart and event reviewed. he has pain in flank and going for lithotripsy again. his photophobia and dizziness is better NEUROLOGICAL EXAMIANTION Drowsy and able to communciate, oriented x 3 neck is supple vss, afebrile eomi, pupils reactive no face asymmetry moving all ext sensation is normal ct head is normal labs and electrolyte unremarkable mri of brain unremarkable eeg wnl Assessment/Plan 1. ? new onset seizure vs heaves, neuro exam is noraml, no evidence of meningitis or stroke. Ct head is normal - mri of brai unremarkable, eeg is normal - after stopping keppra he is feeling better, his photophobia and dizziness has improved. this was induced episode do not need [facility] AED. It was discussed with patient and still advised seizure precautions for six month. 2. Photophobia and headache - much better Thanking you so much Rodolfo Woody md
[2019-12-28] MEDS ORDERED: MORPHINE SULFATE 2 MG/ML VIAL IVPUSH ONE (10:27)
--- NOTE | 2019-12-28 12:56 | PN ---
Physical Exam: SUBJECTIVE: Patient seen and examined. No acute events overnight. Pt was more comfortable today with pain medication. Pt denied hematuria, fevers, chills, shortness of breath, chest pain. OBJECTIVE: Vital Signs Period Temp Pulse Resp BP Sys/Lovett Pulse Ox Last 24 Hr 97.8 F-98.4 F 64-82 20-20 104-154/57-88 96-97 GENERAL: AAOx3, in acute distress HEENT: NCAT, EOMI, moist mucus membranes. RESPIRATORY: CTA b/l. no wheezes. CARDIAC: Regular rate and rhythm. S1, S2 present, no murmurs. ABDOMEN: soft, nontender, non-distended bowel sounds present. MSK: Moving all extremities. CVAT on the L. EXTREMITIES: warm, well-perfused, no edema. Laboratory Last Values WBC 7.8 K/mm3 (4.0-10.0) 12/28/19 06:55 RBC 4.93 M/mm3 (4.00-5.60) 12/28/19 06:55 Hgb 13.8 GM/dL (11.7-16.9) 12/28/19 06:55 Hct 41.6 % (35.4-49) 12/28/19 06:55 MCV 84.4 fl (80-96) 12/28/19 06:55 MCH 28.0 pg (25.7-33.7) 12/28/19 06:55 MCHC 33.2 g/dl (32.0-35.9) 12/28/19 06:55 RDW 13.4 % (11.9-15.9) 12/28/19 06:55 Plt Count 167 K/MM3 (134-434) 12/28/19 06:55 MPV 9.6 fl (7.5-11.1) 12/28/19 06:55 Absolute Neuts (auto) 5.2 K/mm3 (1.5-8.0) 12/25/19 12:48 Neutrophils % 60.6 % (42.8-82.8) 12/25/19 12:48 Lymphocytes % 29.4 % (8-40) D 12/25/19 12:48 Monocytes % 8.4 % (3.8-10.2) 12/25/19 12:48 Eosinophils % 1.5 % (0-4.5) 12/25/19 12:48 Basophils % 0.1 % (0-2.0) 12/25/19 12:48 Nucleated RBC % 0 % (0-0) 12/25/19 12:48 Sodium 142 mmol/L (136-145) 12/28/19 06:55 Potassium 4.9 mmol/L (3.5-5.1) 12/28/19 06:55 Chloride 108 mmol/L (98-107) H 12/28/19 06:55 Carbon Dioxide 30 mmol/L (21-32) 12/28/19 06:55 Anion Gap 4 MMOL/L (8-16) L 12/28/19 06:55 BUN 14.4 mg/dL (7-18) 12/28/19 06:55 Creatinine 0.8 mg/dL (0.55-1.3) 12/28/19 06:55 Est GFR (CKD-EPI)AfAm 122.43 12/28/19 06:55 Est GFR (CKD-EPI)NonAf 105.63 12/28/19 06:55 POC Glucometer 101 UNITS (80-120) 12/25/19 08:56 Random Glucose 93 mg/dL (74-106) 12/28/19 06:55 Calcium 8.6 mg/dL (8.5-10.1) 12/28/19 06:55 Phosphorus 3.0 mg/dL (2.5-4.9) 12/26/19 05:25 Magnesium 2.5 mg/dL (1.8-2.4) H 12/26/19 05:25 Total Bilirubin 0.7 mg/dL (0.2-1) 12/26/19 05:25 AST 21 U/L (15-37) 12/26/19 05:25 ALT 40 U/L (13-61) 12/26/19 05:25 Alkaline Phosphatase 114 U/L (45-117) 12/26/19 05:25 Creatine Kinase 101 U/L (26-308) 12/25/19 12:48 Troponin I < 0.02 ng/ml (0.00-0.05) 12/25/19 12:48 Total Protein 6.2 g/dl (6.4-8.2) L 12/26/19 05:25 Albumin 3.2 g/dl (3.4-5.0) L 12/26/19 05:25 Prolactin 15.3 ng/ml (4.0-15.2) H 12/25/19 12:48 Urine Color Yellow 12/26/19 00:50 Urine Appearance Clear 12/26/19 00:50 Urine pH 6.0 (5.0-8.0) 12/26/19 00:50 Ur Specific [place] 1.014 (1.010-1.035) 12/26/19 00:50 Urine Protein Negative (NEGATIVE) 12/26/19 00:50 Urine Glucose (UA) Negative (NEGATIVE) 12/26/19 00:50 Urine Ketones Negative (NEGATIVE) 12/26/19 00:50 Urine Blood 3+ (NEGATIVE) H 12/26/19 00:50 Urine Nitrite Negative (NEGATIVE) 12/26/19 00:50 Urine Bilirubin Negative (NEGATIVE) 12/26/19 00:50 Urine Urobilinogen 0.2 mg/dL (0.2-1.0) 12/26/19 00:50 Ur Leukocyte Esterase Trace (NEGATIVE) 12/26/19 00:50 Urine WBC (Auto) 4 /uL (0-25.8) 12/26/19 00:50 Urine RBC (Auto) 291 /uL (0-23.9) 12/26/19 00:50 Urine Casts (Auto) 1 /uL (0-3.1) 12/26/19 00:50 U Epithel Cells (Auto) 3 /uL (0-25.1) 12/26/19 00:50 Urine Bacteria (Auto) 1 /uL (0-1359) 12/26/19 00:50 Opiates Screen Negative ng/ml (JZIXOH=679) 12/26/19 00:50 Methadone Screen Negative ng/ml (QNGBKT=731) 12/26/19 00:50 Barbiturate Screen Negative ng/ml (VIOWXO=582) 12/26/19 00:50 Phencyclidine Screen Negative ng/ml (CUTOFF=25) 12/26/19 00:50 Ur Amphetamines Screen Negative ng/ml (MZNOTG=706) 12/26/19 00:50 MDMA (Ecstasy) Screen Negative ng/ml (NWXZQN=080) 12/26/19 00:50 Benzodiazepines Screen Negative ng/ml (ZUVXMU=653) 12/26/19 00:50 Cocaine Screen Negative ng/ml (NQYBKP=753) 12/26/19 00:50 U Marijuana (THC) Screen Negative ng/ml (CUTOFF=50) 12/26/19 00:50 Alcohol, Quantitative < 3 mg/dL (0.0-5.0) 12/25/19 12:48 Active Medications Acetaminophen (Tylenol -) 650 mg PO Q6H PRN PRN Reason: Fever Or Pain Last Admin: 12/27/19 09:41 Dose: 650 mg Documented by: Benzocaine/Menthol (Cepacol Lozenge -) 1 each MM PRN PRN PRN Reason: SORE THROAT Last Admin: 12/27/19 09:42 Dose: 1 each Documented by: Sodium Chloride (Normal Saline -) 1,000 mls @ 75 mls/hr IV ASDIR DIEGO Last Admin: 12/28/19 09:25 Dose: 75 mls/hr Documented by: Morphine Sulfate (Morphine Sulfate) 2 mg IVPUSH Q4H PRN PRN Reason: PAIN LEVEL 6-10 Last Admin: 12/28/19 09:22 Dose: 2 mg Documented by: Ondansetron HCl (Zofran Injection) 4 mg IVPUSH Q4H PRN PRN Reason: NAUSEA AND/OR VOMITING Last Admin: 12/27/19 15:40 Dose: 4 mg Documented by: CT abd/pelvis 1. Bilateral nephrolithiasis with no evidence of obstructive uropathy. 2. No acute pathology within the abdomen or pelvis. ASSESSMENT/PLAN: 49 year old M PMH with R renal calculus now POD#3 s/p right ESWL. In the PACU, pt had some seizure like activity, prompting intubation and sedation. Pt self- extubated and was downgraded to medicine floor. Pt subsequently had L sided flank pain. Pain was controlled with medication. Dr. Mcclellan informed of pt's current condition. L flank pain - post-op day 3 for R ESWL. - CT abdomen/pelvis above. - Urology consulted. No indication for cystoscopy or L JJ stent insertion. Pt will f/u as outpatient to schedule ESWL L then R. - morphine 2q4H PRN. Had an episode of increased pain today. Put 1 time order for morphine 1mg. - acetaminophen 650 q6H prn - Zofran 4 q4H PRN ?New onset seizure - CT head is normal - MRI of brain unremarkable, EEG normal - Neuro consulted. Stopped keppra, dizziness and photophobia improved. This is likely a induced episode and pt does not require custodial antiepileptic drugs. Recommended seizure precautions for six months. FEN -NS @ 75 - Monitor and replete electrolytes - NPO Ppx DVT: early ambulation Dispo: continue to monitor on floors. Visit type - Emergency Visit Emergency Visit: No - New Patient This patient is new to me today: No - Critical Care Critical Care patient: No ATTENDING PHYSICIAN STATEMENT I saw and evaluated the patient. I reviewed the resident's note and discussed the case with the resident. I agree with the resident's findings and plan as documented. SUBJECTIVE: OBJECTIVE: ASSESSMENT AND PLAN:
--- NOTE | 2019-12-28 14:39 | PN ---
JARROD Mancilla Note Chief Complaint: pt feels well History of Present Illness: less L flank pain - Objective Vital Signs: Vital Signs Temperature 98.4 F 12/28/19 06:00 Pulse Rate 64 12/28/19 06:00 Respiratory Rate 20 12/28/19 06:00 Blood Pressure 104/65 12/28/19 06:00 O2 Sat by Pulse Oximetry (%) 96 12/28/19 06:00 Gastrointestinal: Yes: WNL Genitourinary: Yes: WNL Kidneys: Yes: WNL. No: Flank Pain Left, FLank Pain Right Labs/Additional Data: CBC, BMP 12/28/19 06:55 12/28/19 06:55 Imaging - Results Cat Scan: Report Reviewed Problem List - Problems (1) Renal colic on left side Assessment/Plan: CT A/P reviewed, + bilat non-obstructive renal calculi, 3 and 4 mm, no ureteral calculi or hydronephrosis. will cancel cysto and L JJ stent insertion. F/U after disch to book ESWL L then R Code(s): N23 - UNSPECIFIED RENAL COLIC
[2019-12-28] MEDS: KETOROLAC TROMETHAMINE 15 MG/ML VIAL IVPUSH ONE ×2 (18:06→18:10)
[2019-12-29 06:46] VITALS: TEMP 97.8
[2019-12-29 09:07] VITALS: BP 138/66; PULSE 84
[2019-12-29] MEDS: MORPHINE SULFATE 2 MG/ML VIAL IVPUSH PRN (12:26)
[2019-12-29] MEDS: SODIUM CHLORIDE 1,000 ML IV SCH (15:14)
[2019-12-29] MEDS ORDERED: GLYCERIN 1 RECTAL SUPPOSITORY, ADULT PR PRN (15:39)
--- NOTE | 2019-12-29 15:43 | DS ---
Physical Exam: SUBJECTIVE: Patient seen and examined Patient is feeling better with NAD, c/o constipation OBJECTIVE: Vital Signs Temperature 97.8 F 12/29/19 06:00 Pulse Rate 84 12/29/19 09:00 Respiratory Rate 18 12/29/19 09:00 Blood Pressure 138/66 12/29/19 09:00 O2 Sat by Pulse Oximetry (%) 98 12/29/19 09:00 PHYSICAL EXAM GENERAL: The patient is awake, alert, and fully oriented, in no acute distress. HEAD: Normal with no signs of trauma. EYES: PERRL, extraocular movements intact, sclera anicteric, conjunctiva clear. ENT: Ears normal, nares patent, oropharynx clear without exudates, moist mucous membranes. NECK: Trachea midline, full range of motion, supple. LUNGS: Breath sounds equal, clear to auscultation bilaterally, no wheezes, no crackles, no accessory muscle use. HEART: Regular rate and rhythm, S1, S2 without murmur, rub or gallop. ABDOMEN: Soft, nontender, nondistended, normoactive bowel sounds, no guarding, no rebound, no hepatosplenomegaly, no masses. EXTREMITIES: 2+ pulses, warm, well-perfused, no edema. NEUROLOGICAL: Cranial nerves II through XII grossly intact. Normal speech, gait not observed. PSYCH: Normal mood, normal affect. SKIN: Warm, dry, normal turgor, no rashes or lesions noted. LABS CBCD WBC 7.8 K/mm3 (4.0-10.0) 12/28/19 06:55 RBC 4.93 M/mm3 (4.00-5.60) 12/28/19 06:55 Hgb 13.8 GM/dL (11.7-16.9) 12/28/19 06:55 Hct 41.6 % (35.4-49) 12/28/19 06:55 MCV 84.4 fl (80-96) 12/28/19 06:55 MCHC 33.2 g/dl (32.0-35.9) 12/28/19 06:55 RDW 13.4 % (11.9-15.9) 12/28/19 06:55 Plt Count 167 K/MM3 (134-434) 12/28/19 06:55 MPV 9.6 fl (7.5-11.1) 12/28/19 06:55 CMP Sodium 142 mmol/L (136-145) 12/28/19 06:55 Potassium 4.9 mmol/L (3.5-5.1) 12/28/19 06:55 Chloride 108 mmol/L (98-107) H 12/28/19 06:55 Carbon Dioxide 30 mmol/L (21-32) 12/28/19 06:55 Anion Gap 4 MMOL/L (8-16) L 12/28/19 06:55 BUN 14.4 mg/dL (7-18) 12/28/19 06:55 Creatinine 0.8 mg/dL (0.55-1.3) 12/28/19 06:55 Random Glucose 93 mg/dL (74-106) 12/28/19 06:55 Calcium 8.6 mg/dL (8.5-10.1) 12/28/19 06:55 Total Bilirubin 0.7 mg/dL (0.2-1) 12/26/19 05:25 AST 21 U/L (15-37) 12/26/19 05:25 ALT 40 U/L (13-61) 12/26/19 05:25 Alkaline Phosphatase 114 U/L (45-117) 12/26/19 05:25 Total Protein 6.2 g/dl (6.4-8.2) L 12/26/19 05:25 Albumin 3.2 g/dl (3.4-5.0) L 12/26/19 05:25 CARDIAC ENZYMES Creatine Kinase 101 U/L (26-308) 12/25/19 12:48 Troponin I < 0.02 ng/ml (0.00-0.05) 12/25/19 12:48 Current Medications Generic Name Dose Route Start Last Admin Trade Name Freq PRN Reason Stop Dose Admin Acetaminophen 650 mg 12/27/19 00:03 12/27/19 09:41 Tylenol - PO 650 mg Q6H PRN Administration Fever Or Pain Benzocaine/Menthol 1 each 12/27/19 00:03 12/27/19 09:42 Cepacol Lozenge - MM 1 each PRN PRN Administration SORE THROAT Glycerin 2 each 12/29/19 15:39 Glycerin Suppository Adult - MO DAILY PRN CONSTIPATION Sodium Chloride 1,000 mls @ 75 mls/hr 12/27/19 00:03 12/29/19 15:14 Normal Saline - IV 75 mls/hr ASDIR DIEGO Administration Morphine Sulfate 2 mg 12/27/19 15:01 12/29/19 12:26 Morphine Sulfate IVPUSH 2 mg Q4H PRN Administration PAIN LEVEL 6-10 Ondansetron HCl 4 mg 12/27/19 15:24 12/27/19 15:40 Zofran Injection IVPUSH 4 mg Q4H PRN Administration NAUSEA AND/OR VOMITING Home Medications Medication Instructions Recorded Tamsulosin HCl [Flomax] 0.4 mg PO HS 11/08/19 Oxycodone HCl/Acetaminophen 1 each PO Q4H PRN 7 Days #42 12/25/19 [Oxycodone-Acetaminophen 5-325] tablet MDD 6 Docusate Sodium [Colace -] 300 mg PO HS #30 capsule 12/29/19 Microbiology 12/25/19 12:48 Blood - Peripheral Venous Blood Culture - Preliminary NO GROWTH OBTAINED AFTER 96 HOURS, INCUBATION TO CONTINUE FOR 1 DAYS. 12/25/19 12:40 Blood - Peripheral Venous Blood Culture - Preliminary NO GROWTH OBTAINED AFTER 96 HOURS, INCUBATION TO CONTINUE FOR 1 DAYS. 12/26/19 00:50 Urine - Urine - Catheterized Urine Culture - Final NO GROWTH OBTAINED CT of brain without contrast:no evidence of focal intracranial lesion or hemorrhage MRI of the brain: negative CT of the abdomen/pelvis: BL nephrolithiasis with no evidence of obstructive uropathy, no acute pathology within the abdomen. 4mm calcification within the lower pole of the right kidney consistent with a nonobstructing stone within the lower pole of the kidney. HOSPITAL COURSE: Date of Admission:12/25/19 Date of Discharge: 12/29/19 This patient is a 49yom with PMhx of R renal calculus s/p right ESWL , was in ICU transferred to the medicine team on 12/27/2019. Patient was admitted since had a seizure like activity post procedure. was intubated and self extubated. #POD#4 s/p right ESWL #S/p intubation and self extubation #S/P POSSIBLE new onset seizure :possible due to Propofol ; WITH nl HEAD CT , MRI of brain unremarkable, EEG pending, Neuro DR Woody on the case. EEG is done waiting for the result. As per neuro to stop keppra for now. DVT Px: early ambulation Ct of abdomen pelvis as above as per Dr Davis no need for a stent at this time documented profopol possible causing his seizure activity as allergy 12/28/2019 Patient was not dc prior since had severe pain intractable which was relieved by Morphine and Toradol IV will go home today on pain medication that he has it at home given by Dr Vy Moe. Minutes to complete discharge: 35 Discharge Summary Problems reviewed: Yes Reason For Visit: CALCULUS OF KIDNEY Current Active Problems Renal colic on left side (Acute) - Instructions Diet, Activity, Other Instructions: Hospital Course: You came to the hospital for a lithotripsy procedure for kidney stones. After surgery you became unresponsive and the medical team was concerned for your having seizure-like activity. You were intubated and sedated while in the intensive care unit. You were also given treatment for seizures and observed overnight. You were seen by neurology and had a head Cat-Scan and head MRI. Your scans did not show any acute problems. Your condition is now stable and you are medically optimized for discharge to your home. Medications: - Please continue to take your home medications as previously prescribed. -Please take stool softener(Colace) with your pain medication at bedtime to avoid constipation , it's an over counter medication Follow up: - Please follow up with the neurologist, Dr. Woody, in 2 weeks. - Please follow up with your urologist, Dr. Mcclellan, in 2 weeks. - Visit with your Primary Care Provider in 2 weeks. If you do not have a primary care provider you may make an appointment with Dr. Hernandez at the [facility] clinic located at [address] [place] [address] ([phone]). Other: -Please return to the Emergency Department if you experience worsening pain, fevers, chills, shortness of breath, or chest pain, or if you experience any worsening, new or concerning symptoms. Please do not operate a vehicle until your follow up with the neurologist. Having a seizure while driving could be extremely dangerous and possibly fatal. Referrals: Sebastien Juarez MD [Non Staff, Medical] - Zackery Hernandez MD [Staff Physician] - Abhi Mcclellan MD [Staff Physician] - 2 Weeks Disposition: HOME - Home Medications Comprehensive Discharge Medication List: Ambulatory Orders Tamsulosin HCl [Flomax] 0.4 mg PO HS 11/08/19 Oxycodone HCl/Acetaminophen [Oxycodone-Acetaminophen 5-325] 1 each PO Q4H PRN 7 Days #42 tablet MDD 6 12/25/19 Docusate Sodium [Colace -] 300 mg PO HS #30 capsule 12/29/19 This patient is new to me today: No Emergency Visit: Yes ED Registration Date: 12/25/19 Care time: The patient presented to the Emergency Department on the above date and was hospitalized for further evaluation of their emergent condition. Critical Care patient: No - Discharge Referral Referred to [facility] Med P.C.: No
== END 2019-12-29 17:30 | disposition home or self-care (01) | DRG 812 ==
LOC: JASU-SURG 04:16 → JICU 11:10 → J8W 12-26 20:59
PROVIDERS: ADMIT Internal Medicine; ATTEND Internal Medicine
PROC: 0TF3XZZ Fragmentation in Right Kidney Pelvis, External Approach (ICD-10-PCS; 2019-12-25)
PROC: 5A1935Z Respiratory Ventilation, Less than 24 Consecutive Hours (ICD-10-PCS; 2019-12-25)
PROC: 0CHY7BZ Insertion of Airway into Mouth and Throat, Via Natural or Artificial Opening (ICD-10-PCS; 2019-12-25)
PROC: 4A10X4Z Monitoring of Central Nervous Electrical Activity, External Approach (ICD-10-PCS; principal; 2019-12-27)
DX: T88.59XA Other complications of anesthesia, initial encounter (principal); G97.82 Other postprocedural complications and disorders of nervous system; T41.1X5A Adverse effect of intravenous anesthetics, initial encounter; G40.89 Other seizures; R51 Headache; H53.143 Visual discomfort, bilateral; R11.2 Nausea with vomiting, unspecified; N20.0 Calculus of kidney; Y83.8 Other surgical procedures as the cause of abnormal reaction of the patient, or of later complication, without mention of misadventure at the time of the procedure
CPT/HCPCS: 36415; 70450-TC; 70551-TC; 71045-TC-FY; 74176-TC; 80048; 80053; 80307; 81003; 82550; 82962; 83735; 84100; 84146; 84484; 85025; 85027; 87040; 87086; 93005; 93010; 94760; 95816; 97116-GP; 97161-GP; J0131